=== PATIENT | male | born 1975 | race Caucasian/White ===

== ENCOUNTER 2019-07-09 22:36 | Observation (INO) | payer OTHER ==
[~2019-07-09] VITALS: Ht 177.8 cm; Wt 151.5 kg
[2019-07-09] MEDS ORDERED: HYDCHL25 PO (22:54)
[2019-07-09] MEDS ORDERED: LISI5 PO (22:54)
[2019-07-09] MEDS ORDERED: ALBU3IS INH (22:55)
[2019-07-09] MEDS ORDERED: Ventolin/Prove6.7 GM INH (23:01)
[2019-07-09 23:19] LABS: BASOPHILS ABSOLUTE AUTO 0.04 K/mm3 (0.00-0.23); BASOPHILS PERCENT AUTO 0 % (0-2); EOSINOPHILS ABSOLUTE AUTO 0.07 K/mm3 (0.00-0.68); EOSINOPHILS PERCENT AUTO 1 % (0-6); Hematocrit 54.6 % (37.0-53.0); Hemoglobin 17.2 g/dL (13.5-17.5); IMMATURE GRAN ABSOLUTE AUTO 0.04 K/mm3 (0.00-0.10); IMMATURE GRAN PERCENT AUTO 0 % (0-1); LYMPHOCYTES ABSOLUTE AUTO 1.47 K/mm3 (0.84-5.20); LYMPHOCYTES PERCENT AUTO 15 % (21-46); MONOCYTES ABSOLUTE AUTO 0.79 K/mm3 (0.16-1.47); MONOCYTES PERCENT AUTO 8 % (4-13); Mean Corpuscular HGB 28.4 pg (26.0-34.0); Mean Corpuscular HGB Conc 31.5 g/dL (31.5-36.5); Mean Corpuscular Volume 90 fL (80-100); Mean Platelet Volume 10.3 fL (9.1-12.4); NEUTROPHILS ABSOLUTE AUTO 7.66 K/mm3 (1.96-9.15); NEUTROPHILS PERCENT AUTO 76 % (41-73); Platelet Count 183 K/mm3 (150-400); RDW Coefficient Variation 15.3 % (11.7-14.2); RDW Standard Deviation 51.1 fL (35.1-46.3); Red Blood Cell Count 6.05 M/mm3 (4.30-5.90); White Blood Cell Count 10.07 K/mm3 (4.00-11.30)
[2019-07-09 23:41] LABS: Alanine Aminotransfer (ALT/SGP 33 U/L (12-78); Albumin, Blood 2.9 g/dL (3.4-5.0); Alk Phos 92 U/L (50-136); Anion Gap 3 mmol/L (6-16); Aspartate Aminotrans (AST/SGOT 24 U/L (12-37); Bilirubin, Total 0.4 mg/dL (0.1-1.0); Blood Urea Nitrogen 10 mg/dL (8-24); Bun/Creatinine Ratio 8.3 (12.0-20.0); CO2, Blood 37 mmol/L (21-32); Calcium, Blood 8.3 mg/dL (8.5-10.1); Chloride, Blood 105 mmol/L (98-108); Creatinine, Blood 1.21 mg/dL (0.60-1.20); Globulin, Blood 2.8 g/dL (2.2-4.0); Glomerular Filtration Rate >60 (60-); Glucose, Blood 122 mg/dL (70-99); Potassium, Blood 3.6 mmol/L (3.5-5.5); Sodium, Blood 145 mmol/L (136-145); Total Protein, Blood 5.7 g/dL (6.4-8.2); Troponin I 0.039 ng/mL (0.000-0.040)
[2019-07-10] MEDS ORDERED: ALBU3IS INH (00:09)
[2019-07-10] MEDS ORDERED: Ventolin/Prove6.7 GM INH (00:09)
[2019-07-10] MEDS ORDERED: Prinivil10 MG PO (00:15)
[2019-07-10] MEDS ORDERED: Hydrochlorothia25 MG PO (00:15)
[2019-07-10 05:03] LABS: Hemoglobin 18.2 g/dL (13.5-17.5); Mean Corpuscular HGB 28.9 pg (26.0-34.0); Mean Corpuscular HGB Conc 31.9 g/dL (31.5-36.5); Mean Corpuscular Volume 91 fL (80-100); Mean Platelet Volume 10.4 fL (9.1-12.4); Platelet Count 183 K/mm3 (150-400); RDW Coefficient Variation 15.6 % (11.7-14.2); RDW Standard Deviation 51.4 fL (35.1-46.3); White Blood Cell Count 9.19 K/mm3 (4.00-11.30)
--- NOTE | 2019-07-10 07:56 | NUR ---
SHIFT SUMMARY: MAURY ARRIVED TO THE FLOOR VIA , AROUND 0230, INDEPENDENTLY TRANSFERRED SELF TO THE BED AFTER GOING TO THE BATHROOM. HE WAS SOB WITH EXERCTION THAT RECOVERED WITH NO PROBLEMS. IV IN RIGHT HAND WAS PATENT AND FLUSHED WITH NO PROBLEMS. PATIENT BP HAS BEEN ELEVATED ALL NIGHT, GAVE LOPRESSOR AND THEN HYDRALAIZINE WITH LITTLE RESULTS, PATIENT STATES NO SIGNS AND SYMPTOMS OF THE ELEVATION IN BP. DENIED PAIN OR DISCOMFORT. MEDS WERE GIVEN PER EMAR. GAVE REPORT TO DAY SHIFT RN OF THE BP, AND THAT THE MEDS WEREN'T EFFECTIVE TO THIS CAUSE.
[2019-07-10 08:52] LABS: Troponin I 0.022 ng/mL (0.000-0.040)
[2019-07-10 08:59] LABS: Creatine Kinase MB 7.3 ng/mL (0.0-3.6); Creatine Kinase MB Index 1.7 (0.0-4.0)
[2019-07-10 12:36] LABS: Alanine Aminotransfer (ALT/SGP 33 U/L (12-78); Albumin, Blood 3.3 g/dL (3.4-5.0); Alk Phos 108 U/L (50-136); Anion Gap 0 mmol/L (6-16); Aspartate Aminotrans (AST/SGOT 25 U/L (12-37); Bilirubin, Total 0.4 mg/dL (0.1-1.0); Blood Urea Nitrogen 13 mg/dL (8-24); Bun/Creatinine Ratio 13.2 (12.0-20.0); CO2, Blood 37 mmol/L (21-32); Calcium, Blood 8.6 mg/dL (8.5-10.1); Chloride, Blood 103 mmol/L (98-108); Creatinine, Blood 0.98 mg/dL (0.60-1.20); Globulin, Blood 3.3 g/dL (2.2-4.0); Glomerular Filtration Rate >60 (60-); Glucose, Blood 176 mg/dL (70-99); Potassium, Blood 3.8 mmol/L (3.5-5.5); Sodium, Blood 140 mmol/L (136-145); Total Protein, Blood 6.6 g/dL (6.4-8.2)
[2019-07-10 15:49] LABS: Troponin I 0.022 ng/mL (0.000-0.040)
[2019-07-10 16:02] LABS: Creatine Kinase MB 6.9 ng/mL (0.0-3.6); Creatine Kinase MB Index 1.7 (0.0-4.0)
[2019-07-10] MEDS ORDERED: METO50ER PO (16:49)
[2019-07-10] MEDS ORDERED: LISI20 PO (16:49)
--- NOTE | 2019-07-10 18:00 | NUR ---
[place] [id number] BEFORE RECIEVING HIS MORNING MEDICATIONS WITHOUT LETTING ME KNOW WHERE HE WAS GOING. WHILE PT. WAS GONE THE RESEARCH AND INSIGHTS EXECUTIVE CAME TWICE, RESPIRATORY CAME FOR EDUCATION. WHEN PT. HADN'T RETURNED BY 1030 I WENT LOOKING FOR HIM AND FOUND HIM OUTSIDE SMOKING. WHEN HE RETURNED TO ROOM I HAD THE PIERCER OPERATOR GET HIS BLOOD PRESSURE WHICH WAS 211/123 GAVE APRESOLINE AND LISINOPRIL AT THAT TIME ORDERED BY DR. DO. I TOLD PT. HE NEEDED TO STAY IN ROOM SO HE COULD BE TREATED AND TESTS DONE. DR. DO CAME TO SEE PT. AND HE WAS ONCE AGAIN OUTSIDE SMOKING. WHEN PT. RETURNED DR. DO DISCHARGED HIM.
== END 2019-07-10 18:47 | disposition home or self-care (01) ==
LOC: ER 22:36 → MEDS 23:37 → ENPENDDIS 07-10 16:50 → MEDS 07-10 18:47
PROVIDERS: Emergency Medicine; ADMIT Internal Medicine
DX: I16.0 Hypertensive urgency (principal); I11.0 Hypertensive heart disease with heart failure; I50.9 Heart failure, unspecified; J44.9 Chronic obstructive pulmonary disease, unspecified; F17.210 Nicotine dependence, cigarettes, uncomplicated; E66.01 Morbid (severe) obesity due to excess calories; Z91.14 Patient's other noncompliance with medication regimen; Z79.899 Other long term (current) drug therapy; Z79.51 Long term (current) use of inhaled steroids; Z88.1 Allergy status to other antibiotic agents; Z68.42 Body mass index [BMI] 45.0-49.9, adult
CPT/HCPCS: 36415; 71046; 80053; 82550; 82553; 83880; 84484; 85025; 85027; 93005; 93010; 93306; 94640; 94660; 94762; 96372; 96374; 96375; 99285-25; G0378; J0360; J1100; J1650; J1940

== ENCOUNTER 2019-07-24 10:28 | Inpatient (IN) | payer OTHER ==
[~2019-07-24] VITALS: Ht 175.3 cm; Wt 142.3 kg
[~2019-07-24 10:28] MED LIST: ALBU3IS INH; HYDCHL25 PO; Hydrochlorothia25 MG PO; LISI20 PO; LISI5 PO; METO50ER PO; Prinivil10 MG PO; Ventolin/Prove6.7 GM INH
[2019-07-24 11:46] LABS: BASOPHILS ABSOLUTE AUTO 0.05 K/mm3 (0.00-0.23); BASOPHILS PERCENT AUTO 1 % (0-2); EOSINOPHILS ABSOLUTE AUTO 0.07 K/mm3 (0.00-0.68); EOSINOPHILS PERCENT AUTO 1 % (0-6); Hemoglobin 17.2 g/dL (13.5-17.5); IMMATURE GRAN ABSOLUTE AUTO 0.06 K/mm3 (0.00-0.10); IMMATURE GRAN PERCENT AUTO 1 % (0-1); LYMPHOCYTES PERCENT AUTO 21 % (21-46); MONOCYTES ABSOLUTE AUTO 0.76 K/mm3 (0.16-1.47); MONOCYTES PERCENT AUTO 8 % (4-13); Mean Corpuscular HGB 27.8 pg (26.0-34.0); Mean Corpuscular HGB Conc 30.9 g/dL (31.5-36.5); Mean Corpuscular Volume 90 fL (80-100); Mean Platelet Volume 10.1 fL (9.1-12.4); NEUTROPHILS ABSOLUTE AUTO 6.38 K/mm3 (1.96-9.15); NEUTROPHILS PERCENT AUTO 69 % (41-73); Platelet Count 179 K/mm3 (150-400); RDW Coefficient Variation 16.6 % (11.7-14.2); RDW Standard Deviation 51.8 fL (35.1-46.3); Red Blood Cell Count 6.19 M/mm3 (4.30-5.90); White Blood Cell Count 9.22 K/mm3 (4.00-11.30)
[2019-07-24 11:48] LABS: Hematocrit 55.7 % (37.0-53.0)
[2019-07-24 12:15] LABS: Alanine Aminotransfer (ALT/SGP 47 U/L (12-78); Albumin/Globulin Ratio 1.1 (0.8-1.8); Alk Phos 97 U/L (50-136); Anion Gap 4 mmol/L (6-16); Aspartate Aminotrans (AST/SGOT 34 U/L (12-37); Bilirubin, Total 0.4 mg/dL (0.1-1.0); Blood Urea Nitrogen 13 mg/dL (8-24); Bun/Creatinine Ratio 16.2 (12.0-20.0); CO2, Blood 34 mmol/L (21-32); Calcium, Blood 8.2 mg/dL (8.5-10.1); Chloride, Blood 106 mmol/L (98-108); Globulin, Blood 2.8 g/dL (2.2-4.0); Glomerular Filtration Rate >60 (60-); Glucose, Blood 82 mg/dL (70-99); Potassium, Blood 4.3 mmol/L (3.5-5.5); Sodium, Blood 144 mmol/L (136-145); Total Protein, Blood 5.8 g/dL (6.4-8.2); Troponin I 0.047 ng/mL (0.000-0.040)
[2019-07-24 13:10] LABS: PCO2 Arterial 70.1 mmHg (35-45); PO2 Arterial 55.4 mmHg (80-100); pH Blood Arterial 7.36 (7.35-7.45)
[2019-07-25 00:35] LABS: BASOPHILS ABSOLUTE AUTO 0.02 K/mm3 (0.00-0.23); BASOPHILS PERCENT AUTO 0 % (0-2); EOSINOPHILS PERCENT AUTO 0 % (0-6); Hemoglobin 17.3 g/dL (13.5-17.5); IMMATURE GRAN ABSOLUTE AUTO 0.04 K/mm3 (0.00-0.10); IMMATURE GRAN PERCENT AUTO 1 % (0-1); LYMPHOCYTES ABSOLUTE AUTO 0.57 K/mm3 (0.84-5.20); LYMPHOCYTES PERCENT AUTO 7 % (21-46); MONOCYTES ABSOLUTE AUTO 0.18 K/mm3 (0.16-1.47); MONOCYTES PERCENT AUTO 2 % (4-13); Mean Corpuscular HGB 28.3 pg (26.0-34.0); Mean Corpuscular HGB Conc 30.8 g/dL (31.5-36.5); Mean Corpuscular Volume 92 fL (80-100); NEUTROPHILS ABSOLUTE AUTO 7.65 K/mm3 (1.96-9.15); NEUTROPHILS PERCENT AUTO 91 % (41-73); Platelet Count 196 K/mm3 (150-400); RDW Coefficient Variation 15.8 % (11.7-14.2); RDW Standard Deviation 52.8 fL (35.1-46.3); Red Blood Cell Count 6.12 M/mm3 (4.30-5.90); White Blood Cell Count 8.46 K/mm3 (4.00-11.30)
[2019-07-25 00:40] LABS: Hematocrit 56.1 % (37.0-53.0)
--- NOTE | 2019-07-25 03:13 | NUR ---
ASSUMED CARE APPROXIMATELY 2014; PT SELF TRANSFERED TO BED; PT A&O; PT RECALLS HARDSHIPS FREQUENTLY; CURRENTLY LIVES IN [facility]; PT STATES NEED FOR INSURANCE OR ASSISTANCE FOR MEDICATION REGIMEN; PT DEMANDING AND FRUSTRATED AT TIMES; REQUESTS MEALS FREQUENTLY; ELEVATED BP, HYDRALYZINE GIVE PER EMAR APPROXIMATELY 2356; BP IMPROVED ONLY SLIGHTLY; PHYSICIAN NOTIFIED AND ORDERS GIVEN FOR LABETOLOL; PT FREQUENTLY SITS AND DANGLES AT BEDSIDE WHILE SLEEPING; PT EDUCATED ON SAFETY MEASURES AND REPOSITIONED IN BED; CALL LIGHT IN REACH; BED IN LOWEST; WILL CONTINUE TO ASSESS AND MONITOR UNTIL HAND OFF TO DAY SHIFT RN.
--- NOTE | 2019-07-25 04:14 | NUR ---
UPDATE PT HAS REFUSED RESPIRATORY PANEL.
--- NOTE | 2019-07-25 07:20 | NUR ---
UPDATE PATIENT REFUSED TO WEAR BIPAP THROUGHOUT MOST OF THE NIGHT WHEN STAFFED ATTEMPTED TO PLACE BIPAP ON PATIENT. THIS MORNING PATIENT STATED THAT HE SHOULD BE ON "THE MACHINE, WHY AM I NOT ON THE MACHINE." PATIENT POINTED TO THE BIPAP. RN EXPLAINED TO PATIENT THAT HE HAD TOLD STAFF NO WHEN BIPAP WAS ATTEMPTED TO BE PLACED. PATIENT STATED THAT HE DID NOT MEAN TO SAY NO AND THAT HE WOULD WEAR IT NOW. PATIENT CURRENTLY ON BIPAP. RESPIRTORY THERAPY IN TO ASSESS PATIENT.
--- NOTE | 2019-07-25 17:41 | NUR ---
SHIFT SUMMARY. NO ACUTE NEGATIVE CHANGES NOTED THIS SHIFT. PT HAS BEEN HYPERTENSIVE HOWEVER THIS IS IMPROVING. PT HAS BEEN ON 3L NC WITH O2 SATS >90%, PT HAS BEEN USING THE BIPAP WITH SLEEP AND HAS BEEN COMPLIANT WITH WEARING IT TODAY. PT HAS BEEN IND IN THE ROOM. THIS RN HAS PROVIDED EXTENSIVE EDUCATION TO THE PT ON SMOKING CESSATION, DIET, GENERAL HEALTH. CALL LIGHT IN REACH, BED IS LOCKED AND LOW WILL CONTINUE TO MONITOR UNTIL REPORT IS GIVEN TO ONCOMING RN.
[2019-07-25 20:01] LABS: Adenovirus Not Detected (NOT DETECT); Bordetella pertussis Not Detected (NOT DETECT); Chlamydophila pneumoniae Not Detected (NOT DETECT); Coronavirus 229E Not Detected (NOT DETECT); Coronavirus HKU1 Not Detected (NOT DETECT); Coronavirus NL63 Not Detected (NOT DETECT); Coronavirus OC43 Not Detected (NOT DETECT); Human Metapneumovirus Not Detected (NOT DETECT); Human Rhinovirus/Enterovirus Detected (NOT DETECT); Influenza A Not Detected (NOT DETECT); Influenza A/2009-H1 Not Detected (NOT DETECT); Influenza A/H1 Not Detected (NOT DETECT); Influenza A/H3 Not Detected (NOT DETECT); Influenza B Not Detected (NOT DETECT); Mycoplasma pneumoniae Not Detected (NOT DETECT); Parainfluenza Virus 1 Not Detected (NOT DETECT); Parainfluenza Virus 2 Not Detected (NOT DETECT); Parainfluenza Virus 3 Not Detected (NOT DETECT); Parainfluenza Virus 4 Not Detected (NOT DETECT); Respiratory Syncytial Virus Not Detected (NOT DETECT)
--- NOTE | 2019-07-25 21:35 | NUR ---
ASSUMED CARE APPROXIMATELY 1900; PT A&O; SITTING ON EDGE OF BED; NC IN PLACE; TELE PUT BACK ON; BP 168/98, HYDRALYZINE GIVEN PER EMAR; PT USES URINAL AT BEDSIDE; PT BECOMES DEFENSIVE W/ QUESTIONS; ENCOURAGED WITH PROGRESS WITH SUCCESS WITH NICOTINE PATCH; PT CURRENTLY ON PHONE WITH FAMILY; WILL CONTINUE TO MONITOR.
[2019-07-26 03:49] LABS: BASOPHILS ABSOLUTE AUTO 0.03 K/mm3 (0.00-0.23); BASOPHILS PERCENT AUTO 0 % (0-2); EOSINOPHILS ABSOLUTE AUTO 0.03 K/mm3 (0.00-0.68); EOSINOPHILS PERCENT AUTO 0 % (0-6); Hemoglobin 17.6 g/dL (13.5-17.5); IMMATURE GRAN ABSOLUTE AUTO 0.03 K/mm3 (0.00-0.10); IMMATURE GRAN PERCENT AUTO 0 % (0-1); LYMPHOCYTES ABSOLUTE AUTO 1.66 K/mm3 (0.84-5.20); LYMPHOCYTES PERCENT AUTO 13 % (21-46); MONOCYTES PERCENT AUTO 8 % (4-13); Mean Corpuscular HGB 28.1 pg (26.0-34.0); Mean Corpuscular HGB Conc 30.4 g/dL (31.5-36.5); Mean Corpuscular Volume 92 fL (80-100); Mean Platelet Volume 9.9 fL (9.1-12.4); NEUTROPHILS PERCENT AUTO 78 % (41-73); Platelet Count 194 K/mm3 (150-400); RDW Coefficient Variation 16.2 % (11.7-14.2); RDW Standard Deviation 54.6 fL (35.1-46.3); Red Blood Cell Count 6.27 M/mm3 (4.30-5.90); White Blood Cell Count 12.45 K/mm3 (4.00-11.30)
[2019-07-26 03:50] LABS: Hematocrit 57.8 % (37.0-53.0)
[2019-07-26 04:06] LABS: Anion Gap 0 mmol/L (6-16); Blood Urea Nitrogen 26 mg/dL (8-24); Bun/Creatinine Ratio 29.1 (12.0-20.0); CO2, Blood 41 mmol/L (21-32); Calcium, Blood 8.5 mg/dL (8.5-10.1); Chloride, Blood 101 mmol/L (98-108); Glomerular Filtration Rate >60 (60-); Glucose, Blood 159 mg/dL (70-99); Potassium, Blood 4.2 mmol/L (3.5-5.5); Sodium, Blood 142 mmol/L (136-145)
--- NOTE | 2019-07-26 07:39 | NUR ---
UPDATE ELEVATED HR IN NIGHT HYDRALYZINE ADMINISTERED PER ORDERS 10MG AT 2111 AND AGAIN AT 07/26/19 AT 041
--- NOTE | 2019-07-26 08:55 | NUR ---
AM NOTE. ASSUMED CARE OF PT APROX 0700. PT IS A&0x4 AND IND IN THE ROOM. PT WAS ADMITTED FOR COPD EXAC AND IS IND IN THE ROOM. PT HAS BEEN MORE COMPLIANT WITH BIPAP USE. PT STATED HIS CONCERN WITH NOT BEING ON LASIX, PT WAS EDUCATED ON DIURETICS AND THAT HE IS CURRENTLY TAKING A DIURETIC BUT WILL ADDRESS THIS WITH THE PROVIDER. PT WAS ALSO EDUCATED ON I&O AND WATCHING HIS FLUID INTAKE. PT IS IN NSR/ST IN THE 80'S-100'S. PT HAS 2+ EDEMA TO HIS BLE, PT STATES THAT HE FEELS LIKE "I AM FULL OF FLUID." L/S INSP WHEEZES T/O, COARSE AND TIGHT, PT IS ON 3L NC WITH O2 SATS AT 90-93%. BT PRESENT AND NORMOACTIVE, ABD IS SLIGHTLY FIRM BUT NONTENDER TO PALP.
--- NOTE | 2019-07-26 17:51 | NUR ---
SHIFT SUMMARY. NO ACUTE CHANGES NOTED THIS SHIFT. PT HAS BEEN HYPERTENSIVE AND MEDICATED PER EMAR. PT HAS BEEN IND IN THE ROOM. PT DENIES ANY INCREASED SOB, CP OR N/V. PT'S OTHER VS STABLE. PT EDUCATED ON DIET, COPD, FLUID OVERLOAD/RETENTION AND SMOKING CESSATION. CALL LIGHT IN REACH, BED IS LOCKED AND LOW WILL CONTINUE TO MONITOR.
[2019-07-27 03:50] LABS: BASOPHILS ABSOLUTE AUTO 0.03 K/mm3 (0.00-0.23); BASOPHILS PERCENT AUTO 0 % (0-2); EOSINOPHILS ABSOLUTE AUTO 0.03 K/mm3 (0.00-0.68); EOSINOPHILS PERCENT AUTO 0 % (0-6); Hemoglobin 17.1 g/dL (13.5-17.5); IMMATURE GRAN ABSOLUTE AUTO 0.05 K/mm3 (0.00-0.10); IMMATURE GRAN PERCENT AUTO 1 % (0-1); LYMPHOCYTES ABSOLUTE AUTO 1.58 K/mm3 (0.84-5.20); LYMPHOCYTES PERCENT AUTO 17 % (21-46); MONOCYTES PERCENT AUTO 10 % (4-13); Mean Corpuscular HGB 27.6 pg (26.0-34.0); Mean Corpuscular HGB Conc 30.4 g/dL (31.5-36.5); Mean Corpuscular Volume 91 fL (80-100); Mean Platelet Volume 10.1 fL (9.1-12.4); NEUTROPHILS ABSOLUTE AUTO 6.89 K/mm3 (1.96-9.15); NEUTROPHILS PERCENT AUTO 73 % (41-73); Platelet Count 199 K/mm3 (150-400); RDW Coefficient Variation 17.2 % (11.7-14.2); RDW Standard Deviation 54.3 fL (35.1-46.3); Red Blood Cell Count 6.19 M/mm3 (4.30-5.90); White Blood Cell Count 9.48 K/mm3 (4.00-11.30)
[2019-07-27 03:51] LABS: Hematocrit 56.3 % (37.0-53.0)
[2019-07-27 04:04] LABS: Albumin, Blood 2.9 g/dL (3.4-5.0); Anion Gap 1 mmol/L (6-16); Blood Urea Nitrogen 24 mg/dL (8-24); Bun/Creatinine Ratio 23.3 (12.0-20.0); CO2, Blood 40 mmol/L (21-32); Calcium, Blood 8.7 mg/dL (8.5-10.1); Chloride, Blood 100 mmol/L (98-108); Creatinine, Blood 1.03 mg/dL (0.60-1.20); Glomerular Filtration Rate >60 (60-); Glucose, Blood 190 mg/dL (70-99); Phosphorus, Blood 3.9 mg/dL (2.5-4.9); Sodium, Blood 141 mmol/L (136-145)
--- NOTE | 2019-07-27 04:24 | NUR ---
SHIFT SUMMARY: PT IS ALERT AND ORIENTED. PT IS CALM AND COOPERATIVE WITH CARE, INTERMITTENTLY IRRITABLE. PT IS INDEPENDENT IN THE ROOM. PT CALLS APPROPRIATELY. PT REPORTS INTERMITTENT SOB, O2 @ 2.5 L, BIPAP OFF AND ON OVERNIGHT. PT DENIES PAIN, NAUSEA, AND VOMITING. PT BELIEVES HE NEEDS MORE DIURETICS TO GET FLUID OFF, SOME DEGREE OF FLUID RESTRICTION HAS BEEN DISCUSSED WITH THE PT, WHICH HE FEELS HE IS DOING, HOWEVER, HE IS CONSTANTLY ASKING FOR FOOD AND DRINK. PT SLEPT PERIODICALLY THROUGHOUT THE NIGHT. BED IN LOW POSITION, CALL LIGHT WITHIN REACH. WILL CONTINUE TO MONITOR.
--- NOTE | 2019-07-27 08:00 | NUR ---
pt sitting up on side of bed, is complaining of his neck hurting, wants massaged, product representative did this, he was medicated with tylenol earlier this am, heating pad was given, he states it makes it worse, a/ox3, irritated he is having to wait, appologized for his wait, he is complaining about his previous stay, he is cooperative with care, lungs have exp wheezing t/o, resp even and unlabored, no cough noted, but he reports occ nonproductive cough, states his lungs are tight and it can't move, he is on 3 liters 02 via n/c, hrr, tele in place running sr to st per monitor, see strip, one of his concerns is he feels like he has edema in his hands and feet, everything feels tight, his feet do have 2+ edema, ppp+2, cap refill <3sec, vs htn, will give am meds, iv site is clear and patent, btx4, abd round soft nontender, voids without diff, urine is clear natalie urine, skin c/w/d, willem rice, call light in reach.
--- NOTE | 2019-07-27 09:00 | NUR ---
called Dr. Brandt for pain meds for his neck, recieved order for tramadal will give as soon as available.
--- NOTE | 2019-07-27 13:00 | NUR ---
Dr. Marley in to see pt, b/p is still high gave hydralazine and started him on norvasc, will continue to monitor, Dr. Moe was consulted. new orders recieved from him. call light in reach.
--- NOTE | 2019-07-27 18:13 | NUR ---
pt used bipap for a short time today, he is usually sitting on the side of the bed. b/p is coming down after clonidine given. no further changes this shift, call light in reach.
--- NOTE | 2019-07-28 00:40 | NUR ---
24 HOUR URINE COLLECT STARTED AT 0020 AFTER 1ST VOID DISCARDED.
[2019-07-28 03:52] LABS: Hemoglobin 17.6 g/dL (13.5-17.5)
[2019-07-28 03:54] LABS: Hematocrit 56.4 % (37.0-53.0)
[2019-07-28 04:15] LABS: Albumin, Blood 3.2 g/dL (3.4-5.0); Anion Gap 4 mmol/L (6-16); Blood Urea Nitrogen 22 mg/dL (8-24); Bun/Creatinine Ratio 23.1 (12.0-20.0); CO2, Blood 41 mmol/L (21-32); Calcium, Blood 9.2 mg/dL (8.5-10.1); Chloride, Blood 97 mmol/L (98-108); Creatinine, Blood 0.95 mg/dL (0.60-1.20); Glomerular Filtration Rate >60 (60-); Glucose, Blood 127 mg/dL (70-99); Magnesium, Blood 2.1 mg/dL (1.6-2.4); Phosphorus, Blood 5.3 mg/dL (2.5-4.9); Potassium, Blood 3.8 mmol/L (3.5-5.5); Sodium, Blood 142 mmol/L (136-145)
--- NOTE | 2019-07-28 04:15 | NUR ---
SHIFT SUMMARY: PATIENT COMPLIANT WITH CARE BUT DETERMINED TO GO OUTSIDE X2 THIS SHIFT. PATIENT EDUCATED ON RISKS OF SMOKING WITH O2 ON AND HAVING ANY DETERIORATION OF HEALTH OUTSIDE OF THE HOSPITAL AT THIS TIME. PATIENT STATED HE WOULD NOT BE SMOKING AND HE WAS AWARE OF THE CONSEQUENCES. PATIENT BED LOW AND LOCKED, CALL LIGHT WITHIN REACH.
[2019-07-28 04:54] LABS: Cortisol, AM 2.2 ug/dL (6.7-22.6)
--- NOTE | 2019-07-28 08:00 | NUR ---
pt sitting on the side of the bed asking about his meds. Dr. Navarrete was in to see him and changed status to medical floor without tele, a/ox3, can be confrontational at times, insists he will go out to smoke, he wanted to go out without 02 but did some education and about not smoking with o2 on, he agreeable, also held nicotine patch, lungs have ins/exp wheezing t/o, resp even and unlabored, no cough noted, hrr, tele in place running sr to st per monitor, see strip, 2+edema noted to b/l le, but is less tight than yesterday, ppp+2, cap refill <3sec, vs stable, afebrile, no iv site, will ask charge to place one using u/s, abd very large, voids without diff, skin c/w/d, krystal, kt in room, willem, call light in reach.
--- NOTE | 2019-07-28 12:18 | NUR ---
pt will be moving to medical, report given to Rufina, will go via wheelchair. eating lunch at this time, call light in reach.
--- NOTE | 2019-07-28 12:45 | NUR ---
pt left via wheelchair to room 304 with fire engine operator in attendence.
--- NOTE | 2019-07-28 15:54 | NUR ---
ASSUMED CARE FOR THIS PT. PT ARRIVED TO UNIT APPROX 1300 VIA WHEELCHAIR. PT ORIENTATED TO ROOM. PT HAS BEEN INTERMITENTLY SLEEPING SINCE ARRIVING TO THE UNIT
--- NOTE | 2019-07-28 18:46 | NUR ---
PT REQUESTED TO GO OUT AND SMOKE. PT'S O2 SATS DROP INTO THE 80'S WHEN OXYGEN IS OFF. PT WAS EDUCATED ABOUT THE RISKS OF SMOKING WITH THE OXYGEN TANK. CHARGE NURSE AND NURSING WIRE FRAME MAKER WERE NOTIFIED OF THE SITUATION AND BOTH AGREED THAT THAT WAS NOT ALLOWED.
--- NOTE | 2019-07-28 23:31 | NUR ---
PT WAS UPSET WITH RT AND SPOKE TO RT ABOUT NOT BEING IN HIS ROOM WHEN HE HAD CALLED FAST ENOUGH. I HAD SPOKE WITH THE DIVING FISHER WHO HAD LET THE PATIENT KNOW THAT RT WAS IN A CODE. RT ALSO LET THE PT KNOW WHEN THE PATIENT WAS TELLING THEM THEY WERE NOT RESPONDING TO HIM FAST ENOUGH THAT THEY HAD BEEN IN AN EMERGENCY SITUATION. PT'S REPONSE TO THAT WAS "WE WILL SEE IF PT ADVOCATE THINKS IT WAS AN EMERGENCY". THE EMERGENCY WAS WITH ANOTHER PATIENT ON MEDICAL FLOOR AND THE CODES WERE BROADCAST OVERHEAD.
[2019-07-29 00:48] LABS: Protein, Urine Quantitative 6.1 mg/dL (0.0-11.9)
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
[2019-07-29 08:11] LABS: BASOPHILS ABSOLUTE AUTO 0.05 K/mm3 (0.00-0.23); BASOPHILS PERCENT AUTO 1 % (0-2); EOSINOPHILS PERCENT AUTO 1 % (0-6); Hemoglobin 18.7 g/dL (13.5-17.5); IMMATURE GRAN ABSOLUTE AUTO 0.04 K/mm3 (0.00-0.10); IMMATURE GRAN PERCENT AUTO 0 % (0-1); LYMPHOCYTES ABSOLUTE AUTO 1.99 K/mm3 (0.84-5.20); LYMPHOCYTES PERCENT AUTO 22 % (21-46); MONOCYTES ABSOLUTE AUTO 0.84 K/mm3 (0.16-1.47); MONOCYTES PERCENT AUTO 9 % (4-13); Mean Corpuscular HGB Conc 31.2 g/dL (31.5-36.5); Mean Corpuscular Volume 90 fL (80-100); Mean Platelet Volume 9.6 fL (9.1-12.4); NEUTROPHILS ABSOLUTE AUTO 5.94 K/mm3 (1.96-9.15); NEUTROPHILS PERCENT AUTO 66 % (41-73); Platelet Count 195 K/mm3 (150-400); RDW Coefficient Variation 17.1 % (11.7-14.2); RDW Standard Deviation 51.8 fL (35.1-46.3); Red Blood Cell Count 6.69 M/mm3 (4.30-5.90); White Blood Cell Count 8.96 K/mm3 (4.00-11.30)
[2019-07-29 08:34] LABS: Alanine Aminotransfer (ALT/SGP 50 U/L (12-78); Albumin, Blood 3.2 g/dL (3.4-5.0); Albumin/Globulin Ratio 0.9 (0.8-1.8); Alk Phos 87 U/L (50-136); Anion Gap 2 mmol/L (6-16); Aspartate Aminotrans (AST/SGOT 35 U/L (12-37); Bilirubin, Total 0.7 mg/dL (0.1-1.0); Blood Urea Nitrogen 25 mg/dL (8-24); Bun/Creatinine Ratio 26.7 (12.0-20.0); CO2, Blood 44 mmol/L (21-32); Calcium, Blood 9.1 mg/dL (8.5-10.1); Chloride, Blood 95 mmol/L (98-108); Creatinine, Blood 0.94 mg/dL (0.60-1.20); Globulin, Blood 3.4 g/dL (2.2-4.0); Glomerular Filtration Rate >60 (60-); Glucose, Blood 108 mg/dL (70-99); Magnesium, Blood 2.2 mg/dL (1.6-2.4); Phosphorus, Blood 4.8 mg/dL (2.5-4.9); Potassium, Blood 3.8 mmol/L (3.5-5.5); Sodium, Blood 141 mmol/L (136-145); Total Protein, Blood 6.6 g/dL (6.4-8.2)
--- NOTE | 2019-07-29 12:35 | NUR ---
PATIENT COMPLAINED OF "SMALL PORTIONS" WITH MEALS; THREW A HUGE FIT. CALLED DR FLORES AND REQUESTED A DIET CHANGE. NEW ORDERS FOR REGULAR DIET, LARGE PORTIONS.
--- NOTE | 2019-07-29 14:25 | NUR ---
SHIFT SUMMARY PATIENT NON-COMPLIANT WITH FLUID RESTRICTION; HAS ALREADY REACHED DAILY LIMIT. EASILY UPSET AND ANGERED ABOUT THINGS. THIS RN ATTEMPTS TO FIND REMEDIES TO SATISFY THE PATIENT AND HE SEEMS TO HAVE "COOLED-OFF". BLOOD PRESSURE SLIGHTLY ELEVATED; BP MEDS GIVEN PRESCRIBED. PATIENT PUTTING OUT A LOT OF URINE HOWEVER ON DIURETICS SO CAN BE EXPECTED. O2 HAS BEEN INCREASED TO 11.5L ON HIGH-FLOW NC, PATIENT SAT'ING AT ABOUT THE 90's. NO OTHER CHANGES NOTED OR REPORTED AT THIS TIME. WILL CONTINUE TO MONITOR AND PROVIDE CARE NEEDED.
--- NOTE | 2019-07-29 21:19 | NUR ---
PT TAKING SHOWER.
--- NOTE | 2019-07-29 22:13 | NUR ---
NO NEEDS AT THIS TIME. CALL LT IN REACH.
--- NOTE | 2019-07-30 04:29 | NUR ---
SHIFT SUMMARY: A/O. INDEP IN RM. ON 9L VIA HIGH FLOW NC WHEN AWAKE. WORE BIPAP WITH 9L BLEED IN AND RESTED WELL WITH CONT BIOX. IRRITABLE AND ANGRY AT BEGINNING OF SHIFT, PT VENTING ABOUT HOW HE HAD A BAD NIGHT. RESP APPEAR TO BE UNLABORED. STATES SOB IS IMPROVED. TOOK A SHOWER AND TOLERATED WELL. MEDICATED ONCE FOR HEADACHE PAIN, TRAMADOL AND FLEXERIL GIVEN. BREATHING TREATMENTS GIVEN PER RESPIRATORY CARE. NO ACUTE CHANGES. WILL CONTINUE TO MONITOR AND PROVIDE CARE UNTIL SHIFT REPORT.
[2019-07-30 06:13] LABS: Albumin, Blood 2.9 g/dL (3.4-5.0); Anion Gap 2 mmol/L (6-16); Blood Urea Nitrogen 28 mg/dL (8-24); Bun/Creatinine Ratio 27.5 (12.0-20.0); CO2, Blood 43 mmol/L (21-32); Calcium, Blood 8.7 mg/dL (8.5-10.1); Chloride, Blood 95 mmol/L (98-108); Creatinine, Blood 1.02 mg/dL (0.60-1.20); Glomerular Filtration Rate >60 (60-); Glucose, Blood 106 mg/dL (70-99); Magnesium, Blood 2.2 mg/dL (1.6-2.4); Phosphorus, Blood 4.4 mg/dL (2.5-4.9); Potassium, Blood 3.7 mmol/L (3.5-5.5); Sodium, Blood 140 mmol/L (136-145)
--- NOTE | 2019-07-30 06:19 | NUR ---
PT RESTING QUIETLY. BIPAP IN PLACE, CONTINUOUS BIOX.
--- NOTE | 2019-07-30 18:10 | NUR ---
SHIFT SUMMARY PT INDEPENDENT IN ROOM. REPORTS STIFFNESS IN NECK THIS MORNING AND HE REQUESTED FLEXERIL AND TRAMADOL. O2 WAS DECREASED TO 6L/M BY RT AND NO INCREASE IN RESP DYSPNEA NOTED. VERY CHATTY. VOIDING LARGE AMOUNTS.
[2019-07-31 04:40] LABS: BASOPHILS ABSOLUTE AUTO 0.03 K/mm3 (0.00-0.23); BASOPHILS PERCENT AUTO 0 % (0-2); EOSINOPHILS ABSOLUTE AUTO 0.09 K/mm3 (0.00-0.68); EOSINOPHILS PERCENT AUTO 1 % (0-6); Hemoglobin 17.9 g/dL (13.5-17.5); IMMATURE GRAN ABSOLUTE AUTO 0.02 K/mm3 (0.00-0.10); IMMATURE GRAN PERCENT AUTO 0 % (0-1); LYMPHOCYTES ABSOLUTE AUTO 2.26 K/mm3 (0.84-5.20); LYMPHOCYTES PERCENT AUTO 23 % (21-46); MONOCYTES PERCENT AUTO 8 % (4-13); Mean Corpuscular HGB Conc 31.2 g/dL (31.5-36.5); Mean Corpuscular Volume 90 fL (80-100); Mean Platelet Volume 9.7 fL (9.1-12.4); NEUTROPHILS ABSOLUTE AUTO 6.61 K/mm3 (1.96-9.15); NEUTROPHILS PERCENT AUTO 67 % (41-73); Platelet Count 207 K/mm3 (150-400); RDW Coefficient Variation 15.3 % (11.7-14.2); RDW Standard Deviation 49.9 fL (35.1-46.3); Red Blood Cell Count 6.39 M/mm3 (4.30-5.90); White Blood Cell Count 9.81 K/mm3 (4.00-11.30)
[2019-07-31 04:42] LABS: Hematocrit 57.4 % (37.0-53.0)
[2019-07-31 05:04] LABS: Alanine Aminotransfer (ALT/SGP 52 U/L (12-78); Alk Phos 83 U/L (50-136); Anion Gap 2 mmol/L (6-16); Aspartate Aminotrans (AST/SGOT 30 U/L (12-37); Bilirubin, Direct 0.1 mg/dL (0.0-0.3); Bilirubin, Indirect 0.4 mg/dL (0.1-0.7); Bilirubin, Total 0.5 mg/dL (0.1-1.0); Blood Urea Nitrogen 34 mg/dL (8-24); Bun/Creatinine Ratio 31.2 (12.0-20.0); CO2, Blood 40 mmol/L (21-32); Calcium, Blood 8.6 mg/dL (8.5-10.1); Chloride, Blood 98 mmol/L (98-108); Creatinine, Blood 1.09 mg/dL (0.60-1.20); Globulin, Blood 3.1 g/dL (2.2-4.0); Glomerular Filtration Rate >60 (60-); Glucose, Blood 106 mg/dL (70-99); Magnesium, Blood 2.4 mg/dL (1.6-2.4); Phosphorus, Blood 4.6 mg/dL (2.5-4.9); Potassium, Blood 3.6 mmol/L (3.5-5.5); Sodium, Blood 140 mmol/L (136-145); Total Protein, Blood 6.1 g/dL (6.4-8.2)
--- NOTE | 2019-07-31 07:58 | NUR ---
Rn summary: Patient is alert and oriented. Pt is on 6 L high flow O2 at rest. Pt did try cpap but kept taking it off in sleep. Pt sleeping with NC in mouth and sats above 90%. Pt has voided in urinal and had good output. Pt still has 2+ edema in lower legs but sttes it is greatly improved. Pt denies pain. Has rested well. Call light in reach. Report to day shift.
--- NOTE | 2019-07-31 18:06 | NUR ---
SHIFT SUMMARY PT INDEPENDENT IN ROOM. REPORTED HE WAS GOING OUT TO SMOKE TODAY AND THAT HE HAD GONE LAST NIGHT. EXPLAINED TO PT THAT I STRONGLY DISCOURAGED HIM FROM GOING OUT TO SMOKE DUE TO HIS RESP STATUS AND OXIMETRY DROPPING WITHOUT O2. ALSO TOLD HIM HE WAS NOT ALLOWED TO TAKE A TANK OF O2 OUTSIDE WITH HIM TO SMOKE, THAT HE WAS RISKING BECOMING HYPOXIC AND COMING BACK IN RESP DISTRESS. PT CHOSE TO GO OUT ANYHOW. REPORTED INCREASED SHORTNESS OF BREATH WHEN HE RETURNED BUT PUT HIS O2 BACK ON AND RECOVER ADEQUATELY. USING CPAP WHEN SLEEPING. NO OTHER CHANGE TODAY.
[2019-08-01 04:33] LABS: Hemoglobin 18.1 g/dL (13.5-17.5)
[2019-08-01 04:34] LABS: Hematocrit 57.1 % (37.0-53.0)
[2019-08-01 05:04] LABS: Anion Gap 3 mmol/L (6-16); Blood Urea Nitrogen 40 mg/dL (8-24); Bun/Creatinine Ratio 34.5 (12.0-20.0); CO2, Blood 35 mmol/L (21-32); Calcium, Blood 8.6 mg/dL (8.5-10.1); Chloride, Blood 102 mmol/L (98-108); Creatinine, Blood 1.16 mg/dL (0.60-1.20); Glomerular Filtration Rate >60 (60-); Glucose, Blood 102 mg/dL (70-99); Magnesium, Blood 2.4 mg/dL (1.6-2.4); Phosphorus, Blood 4.6 mg/dL (2.5-4.9); Potassium, Blood 3.6 mmol/L (3.5-5.5); Sodium, Blood 140 mmol/L (136-145)
--- NOTE | 2019-08-01 07:21 | NUR ---
PT with hx of 3 pack per day smoking and he was reported to have out to smoke several times on day shift to smoke wearing nicotine patch. PT encouraged to stop smoking risks of smoking. PT on 1200 ml fluid restriction , general diet. PT does not use home oxygen, room air sat 78% and greater than 92% on 4 l nc. Uses bipap at HS. Minimal edema after agressive diuresis with IV bumex. Medicated x 1 with ultram for co neck pain. PT may be homeless estranged from Family, reports recent travel long trips in last 2 weeks on [place].
[2019-08-01 10:07] LABS: ALDOS/RENIN RATIO 3.1 (0.0-30.0); ALDOSTERONE 4.7 ng/dL (0.0-30.0)
--- NOTE | 2019-08-01 16:50 | NUR ---
SHIFT SUMMARY PT WENT OUT TO SMOKE THIS AFTERNOON AND REPORTED FEELING FUZZY WHEN HE RETURNED. EXPLAINED THAT WAS PROBABLY RELATED TO BEING HYPOXIC. REQUESTING A SHOWER AT THIS TIME. USING CPAP WHEN SLEEPING. NO RESP DISTRESS NOTED OTHER THAN WHEN HE RETURNED FROM OUTSIDE.
[2019-08-02 04:48] LABS: BASOPHILS ABSOLUTE AUTO 0.03 K/mm3 (0.00-0.23); BASOPHILS PERCENT AUTO 0 % (0-2); EOSINOPHILS ABSOLUTE AUTO 0.05 K/mm3 (0.00-0.68); EOSINOPHILS PERCENT AUTO 1 % (0-6); Hemoglobin 18.4 g/dL (13.5-17.5); IMMATURE GRAN ABSOLUTE AUTO 0.03 K/mm3 (0.00-0.10); IMMATURE GRAN PERCENT AUTO 0 % (0-1); LYMPHOCYTES ABSOLUTE AUTO 2.17 K/mm3 (0.84-5.20); LYMPHOCYTES PERCENT AUTO 21 % (21-46); MONOCYTES ABSOLUTE AUTO 1.07 K/mm3 (0.16-1.47); MONOCYTES PERCENT AUTO 11 % (4-13); Mean Corpuscular HGB 28.2 pg (26.0-34.0); Mean Corpuscular HGB Conc 31.6 g/dL (31.5-36.5); Mean Corpuscular Volume 89 fL (80-100); Mean Platelet Volume 10.1 fL (9.1-12.4); NEUTROPHILS ABSOLUTE AUTO 6.78 K/mm3 (1.96-9.15); NEUTROPHILS PERCENT AUTO 67 % (41-73); Platelet Count 220 K/mm3 (150-400); RDW Coefficient Variation 15.7 % (11.7-14.2); RDW Standard Deviation 50.2 fL (35.1-46.3); Red Blood Cell Count 6.52 M/mm3 (4.30-5.90); White Blood Cell Count 10.13 K/mm3 (4.00-11.30)
[2019-08-02 04:53] LABS: Hematocrit 58.2 % (37.0-53.0)
[2019-08-02 05:15] LABS: Alanine Aminotransfer (ALT/SGP 47 U/L (12-78); Albumin, Blood 3.1 g/dL (3.4-5.0); Anion Gap 6 mmol/L (6-16); Aspartate Aminotrans (AST/SGOT 22 U/L (12-37); Bilirubin, Total 0.6 mg/dL (0.1-1.0); Blood Urea Nitrogen 45 mg/dL (8-24); Bun/Creatinine Ratio 38.8 (12.0-20.0); CO2, Blood 32 mmol/L (21-32); Chloride, Blood 101 mmol/L (98-108); Creatinine, Blood 1.16 mg/dL (0.60-1.20); Glomerular Filtration Rate >60 (60-); Glucose, Blood 112 mg/dL (70-99); Magnesium, Blood 2.4 mg/dL (1.6-2.4); Phosphorus, Blood 4.9 mg/dL (2.5-4.9); Potassium, Blood 3.5 mmol/L (3.5-5.5); Sodium, Blood 139 mmol/L (136-145)
[2019-08-02 05:16] LABS: Alk Phos 80 U/L (50-136); Globulin, Blood 3.2 g/dL (2.2-4.0); Total Protein, Blood 6.3 g/dL (6.4-8.2)
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
--- NOTE | 2019-08-02 18:32 | NUR ---
SHIFT SUMMARY AMBULATES WELL ON ROOM AIR. 02 SATS INTERMITTENTLY DROP TO UPPER 80'S EVEN AT REST. BIPAP AT NIGHT. HOMELESS. LIVES AT [facility] IN [place]. COPD. DOWN TO SMOKE FREQUENTLY. LARGE APPETITE. DEPRESSED ABOUT RECENT DIVORCE. 1200ML FLUID RESTRICTION. MOSTLY COOPERATIVE AND PLEASANT. INDEPENDENT OX4.
[2019-08-03 04:45] LABS: Hemoglobin 18.4 g/dL (13.5-17.5)
[2019-08-03 04:46] LABS: Hematocrit 57.3 % (37.0-53.0)
[2019-08-03 05:03] LABS: Albumin, Blood 3.1 g/dL (3.4-5.0); Anion Gap 4 mmol/L (6-16); Blood Urea Nitrogen 43 mg/dL (8-24); Bun/Creatinine Ratio 34.4 (12.0-20.0); CO2, Blood 34 mmol/L (21-32); Calcium, Blood 8.7 mg/dL (8.5-10.1); Chloride, Blood 104 mmol/L (98-108); Creatinine, Blood 1.25 mg/dL (0.60-1.20); Glomerular Filtration Rate >60 (60-); Glucose, Blood 95 mg/dL (70-99); Magnesium, Blood 2.4 mg/dL (1.6-2.4); Phosphorus, Blood 4.3 mg/dL (2.5-4.9); Potassium, Blood 3.5 mmol/L (3.5-5.5); Sodium, Blood 142 mmol/L (136-145)
--- NOTE | 2019-08-03 05:52 | NUR ---
43 year old Male who appears older than actual age has been able to spend some time off oxygen because he has bioxx to alarm when sats are less than 90% demonstrated pursed lip breathing and PT used when sats less than 90 % with good effect. Bipap at HS needs oxygen at HS bled into bipap. Polycythema Vera high H & H. PT says hx of spontanous pneumothorax with hemothorax with chest tube placement and removal of walled off lung debis per his report at [facility] 3 years ago. Continues homeless, needs assist with discharge plan. Continues on 1200 ml fluid restriction. Smoking cessation encouraged.
--- NOTE | 2019-08-03 18:32 | NUR ---
SHIFT SUMMARY MAURY DENIED PAIN THIS SHIFT. RR STATUS STABLE ON RA. ON CONT BIOX AND TO HAVE SLEEP STUDY TONIGHT. PT TALKATIVE AND COOPERATIVE MOST OF THE SHIFT, OCCASIONALLY GETTING IRRITABLE. 1.2L FR, PT DOING WELL WITH THIS. TO HAVE F/U WITH DR BLOCK ON MONDAY AT 11AM IF DISCHARGED OVER THE WEEKEND. INDEP TO BR, WENT OUTSIDE SEVERAL TIMES. TOOK MEDS PRESCRIBED, CALL LIGHT IN REACH, [facility]
--- NOTE | 2019-08-04 04:11 | NUR ---
08/04/19 1153 SLEEP STUDY IN PROGRESS. PT DID NOT FALL ASLEEP UNTIL AROUND MIDNIGHT. SNACKS GIVEN THROUGHT EVENING. WANTED TO WAIT UNTIL AM TO HAVE VITALS DONE. UNEVENTFUL NIGHT.
[2019-08-04 05:10] LABS: PCO2 Arterial 60.2 mmHg (35-45); PO2 Arterial 66.1 mmHg (80-100); pH Blood Arterial 7.34 (7.35-7.45)
[2019-08-04 08:07] LABS: Hemoglobin 18.6 g/dL (13.5-17.5)
[2019-08-04 08:13] LABS: Hematocrit 58.4 % (37.0-53.0)
[2019-08-04 08:17] LABS: Albumin, Blood 3.4 g/dL (3.4-5.0); Anion Gap 3 mmol/L (6-16); Blood Urea Nitrogen 33 mg/dL (8-24); Bun/Creatinine Ratio 29.2 (12.0-20.0); CO2, Blood 37 mmol/L (21-32); Calcium, Blood 8.7 mg/dL (8.5-10.1); Chloride, Blood 104 mmol/L (98-108); Creatinine, Blood 1.13 mg/dL (0.60-1.20); Glomerular Filtration Rate >60 (60-); Glucose, Blood 84 mg/dL (70-99); Magnesium, Blood 2.2 mg/dL (1.6-2.4); Phosphorus, Blood 3.4 mg/dL (2.5-4.9); Potassium, Blood 3.9 mmol/L (3.5-5.5); Sodium, Blood 144 mmol/L (136-145)
--- NOTE | 2019-08-04 18:05 | NUR ---
ASSUMED CARE OF PT- RECIEVED REPORT FROM NIGHT CRYSTAL HATHAWAY. PT ALERT AND ORIENTED AND INDEPENDENT IN THE HALLS. PT WAITING FOR TRILOGY BIPAP UPON DISCHARGE. PT HAS A BI PAP AT THE BEDSIDE WHICH HE PLACES ON HIS OWN W/O DIFFICULTY.
--- NOTE | 2019-08-04 18:08 | NUR ---
SHIFT SUMMARY- PT ALERT AND ORIENTED INDEPENDENT IN THE HALLS. PT HAS A BIPAP HE PUTS ON AND OFF INDEPENDENTLY. PT HAS A CONTINUOUS OXEMETRY WHICH HE TAKES OFF AND TURNS OFF ON HIS OWN. PT DID NOT WANT TO WEAR IT T/O THE DAY BUT ALSO DID NOT WANT TO DECLINE A TREATMENT. OFFERD THE PT ABILITY TO SIGN THAT HE DID NOT WANT A CONT BIOX HE DID NTO WANT TO SIGN IT AND THE PROBE WAS PLACED AGAIN PT STILL REMOVES IT AT WILL. SIGNED A DECLINE SHEET WITH THE RT PT DOES WEAR THE BIOX BUT NOT CONTINUOUSLY ORDERED. PT PLEASENT AND COMPLIANT WITH ALL OTHER CARE. PT WEARS THE BI PAP ORDERED.
--- NOTE | 2019-08-05 02:11 | NUR ---
08/05/19 0210 PT SLEEPING WITHOUT DISTRESS. BIPAP MACHINE ON. VITALS HAVE BEEN STABLE.
--- NOTE | 2019-08-05 05:10 | NUR ---
08/05/19 0510 SLEEPING WELL NOW. BIPAP MACHINE ON AT BEDTIME AND PT STATES HE HAS SLEPT VERY WELL WITH IT ON EACH NIGHT. VITALS STABLE. FLUID RESTRICTION IN EFFECT. UNEVENTFUL NIGHT.
[2019-08-05 05:12] LABS: Hematocrit 57.4 % (37.0-53.0)
[2019-08-05 05:42] LABS: Anion Gap 6 mmol/L (6-16); Blood Urea Nitrogen 25 mg/dL (8-24); Bun/Creatinine Ratio 27.2 (12.0-20.0); CO2, Blood 30 mmol/L (21-32); Calcium, Blood 8.6 mg/dL (8.5-10.1); Chloride, Blood 108 mmol/L (98-108); Creatinine, Blood 0.92 mg/dL (0.60-1.20); Glomerular Filtration Rate >60 (60-); Glucose, Blood 92 mg/dL (70-99); Magnesium, Blood 2.3 mg/dL (1.6-2.4); Phosphorus, Blood 4.3 mg/dL (2.5-4.9); Potassium, Blood 3.9 mmol/L (3.5-5.5); Sodium, Blood 144 mmol/L (136-145)
--- NOTE | 2019-08-05 07:29 | NUR ---
ASSUMED CARE OF PT- REPORT RECIEVED FROM NIGHT CRYSTAL HATHAWAY. PT ALERT, ORIENTED AND INDEPENDENT. PT VERY IRRITABLE THAT NO STAFF SEEM TO KNOW WHAT IS FOR BREAKFAST. PT WENT DOWN TO THE KITCHEN TO DETERMINE WHAT WAS AVAILABLE. SPOKE TO DR SIDHU, PER HER REQUEST WILL SPEAK TO REHABILITATION CASE COORDINATOR ABOUT DISCHARGE PLANNING.
[2019-08-05] MEDS ORDERED: AMLO10 PO (12:35)
[2019-08-05] MEDS ORDERED: CLON.1 PO (12:36)
[2019-08-05] MEDS ORDERED: CYCL10 PO (12:36)
[2019-08-05] MEDS ORDERED: GUAI600T33 PO (12:37)
[2019-08-05] MEDS ORDERED: POTA10T PO (12:40)
[2019-08-05] MEDS ORDERED: LISI20 PO (12:40)
[2019-08-05] MEDS ORDERED: ALBU3IS INH (12:40)
[2019-08-05] MEDS ORDERED: PRED5 PO (12:41)
[2019-08-05] MEDS ORDERED: ALBU90OI INH (12:41)
[2019-08-05] MEDS ORDERED: Bumetanide1 MG PO (12:42)
[2019-08-05] MEDS ORDERED: BUDE6HFA INH (12:42)
--- NOTE | 2019-08-05 18:43 | NUR ---
DISCHARGE NOTE- PT DISCHARGED TO [facility]. PT RECIEVED EXTENSIVE EDUCATION FROM MULTIPLE STAFF. EJMMA TO MEET THE PT AT [facility] WITH HIS HOME O2 AND NEBULIZER. PT AWARE.
== END 2019-08-05 18:24 | disposition home or self-care (01) | DRG 189 ==
LOC: ER 10:28 → PCU 10:29 → MEDS 07-28 12:55 → ENPENDDIS 08-05 11:16 → MEDS 08-05 18:24
PROVIDERS: Family Medicine; Internal Medicine; Internal Medicine Nephrology; Nurse Practitioner Acute Care; Physician Assistant; ADMIT Internal Medicine
PROC: 5A09357 Assistance with Respiratory Ventilation, Less than 24 Consecutive Hours, Continuous Positive Airway Pressure (ICD-10-PCS; principal; 2019-07-25)
DX: J96.01 Acute respiratory failure with hypoxia (principal); I50.23 Acute on chronic systolic (congestive) heart failure; I13.0 Hypertensive heart and chronic kidney disease with heart failure and stage 1 through stage 4 chronic kidney disease, or unspecified chronic kidney disease; J44.1 Chronic obstructive pulmonary disease with (acute) exacerbation; I24.8 Other forms of acute ischemic heart disease; E87.2 Acidosis; E27.40 Unspecified adrenocortical insufficiency; N17.9 Acute kidney failure, unspecified; Z68.42 Body mass index [BMI] 45.0-49.9, adult; J96.02 Acute respiratory failure with hypercapnia; J20.6 Acute bronchitis due to rhinovirus; F17.210 Nicotine dependence, cigarettes, uncomplicated; I27.20 Pulmonary hypertension, unspecified; N18.2 Chronic kidney disease, stage 2 (mild); E88.09 Other disorders of plasma-protein metabolism, not elsewhere classified; D75.1 Secondary polycythemia; E66.01 Morbid (severe) obesity due to excess calories; Z59.0 Homelessness
CPT/HCPCS: 0099U; 36415; 36600; 71046; 71250; 80053; 80069; 80400; 82088; 82248; 82533; 82570; 82803; 83735; 83880; 83970; 84100; 84145; 84156; 84244; 84443; 84484; 85014; 85018; 85025; 93005; 93010; 94010; 94640; 94644; 94660; 94664; 94668; 94762; 96365; 96366; 96372; 96372-59; 96375; 96376; 98960; 99285-25; 99406; A9270; G0378; J0360; J0456; J0834; J1120; J1650; J1940; J2930; J7050; J7512